=== PATIENT | female | born 2000 | race Caucasian/White ===

== ENCOUNTER → 2025-08-27 | Outpatient (CLI) | payer MEDICARE, MEDICAID, SELFPAY ==
--- NOTE | 2025-08-27 10:20 | XR_ITS ---
Examination: CT abdomen with intravenous contrast. Coronal 2-D reconstructions. Sagittal 2-D reconstructions. Date and time of exam: August 27, 2025, 1129 hours INDICATIONS: Elevated liver function test on laboratory examination this week CTDI: vol (mGy): 7.36 DLP: (mGycm): 283 Technique: Axial images of the abdomen have been obtained, 3 mm slice thickness, 60 cc [id number] 2-D sagittal coronal reconstructions Low dose protocols were performed. One or more of the following dose reduction techniques were used; automated exposure control, adjustment of the mA and/or KV according to patient size, use of iterative reconstruction technique. Findings: No focal liver or splenic lesions AP splenic dimension 14 cm Hepatomegaly 18 cm Contracted gallbladder No pancreatic mass No biliary tract dilatation No renal or ureteral calculi, no hydronephrosis Aorta normal size No pericecal inflammatory change. Scarring in the anterior right lower abdominal wall Colon shows diffuse wall thickening especially descending colon, no diverticulitis Mild osteopenia IMPRESSION: Hepatosplenomegaly No renal or ureteral calculi No pericecal inflammatory change Nonspecific colitis pattern, clinical correlation advised
[2025-08-27 10:34] LABS: HCG Qualitative,Urine Negative
--- NOTE | 2025-08-27 13:46 | XR_ITS ---
Examination: Ultrasound-guided needle placement left basilic vein Date and Time: August 27, 2025, 1346 hours INDICATIONS: Unable to obtain IV access for CT examination of the abdomen pelvis with contrast. Technique: Informed consent provided. Timeout performed. Skin prepped over the right arm and sterile drape applied. Maximum sterile barrier technique utilized, hand hygiene, sterile ultrasound technique 1% lidocaine administered for local anesthesia. Side right portable apparatus utilized to confirm patency of the left basilic vein. Ultrasound images recorded and stored. Successful ultrasound-guided needle puncture left basilic vein 0.18 wire guide introduced into the basilic vein followed by 5 [place] catheter for IV access Estimated blood loss 1 cc The patient tolerated the procedure well, in satisfactory and stable condition a completion of the procedure Impression: Successful ultrasound-guided needle placement left basilic vein
[2025-08-27] MEDS: LIDOCAINE INJ PF 1% 30 ML VIAL 4 ML INFL (14:00)
== END | disposition home or self-care (01) ==
PROVIDERS: PCP Family Medicine; Referring Provider Family Medicine; Visit Provider Family Medicine
DX: R16.2 Hepatomegaly with splenomegaly, not elsewhere classified (principal); Z32.00 Encounter for pregnancy test, result unknown
CPT/HCPCS: 36012; 37252; 74160; 75820; 76937; 77002; 81025; A4649; C1894; J3490; Q9967